=== PATIENT | male | born 1995 | race Caucasian/White ===

== ENCOUNTER 2024-01-10 13:32 | Emergency (ER) | payer SELFPAY ==
[~2024-01-10] VITALS: Ht 177.8 cm; Wt 70.0 kg
[2024-01-10 13:38] VITALS: BP 157/80; PULSE 88; RESP 16; TEMP 98.5; O2SAT 98
== END 2024-01-10 15:00 | disposition left against medical advice (07) ==
LOC: ER 14:19
DX: R53.1 Weakness (principal); Z53.21 Procedure and treatment not carried out due to patient leaving prior to being seen by health care provider
CPT/HCPCS: 99281